=== PATIENT | male | born 1955 | race Caucasian/White ===

== ENCOUNTER 2020-09-05 09:01 | Outpatient (REF) | payer OTHER, SELFPAY ==
[2020-09-05 11:26] LABS: Estimated Average Glucose 140 mg/dL; Hemoglobin A1c % 6.5 %
[2020-09-05 11:59] LABS: Alanine Aminotransferase 28 U/L (0-40); Albumin Level 4.5 g/dL (3.5-5.0); Alkaline Phosphatase 55 U/L (39-117); Anion Gap 15 (12-20); Aspartate Amino Transferase 23 U/L (5-37); Bilirubin Total 1.2 mg/dL (0.0-1.0); Blood Urea Nitrogen 15 mg/dL (9-16); Calcium 9.2 mg/dL (8.4-10.2); Carbon Dioxide 27 mmol/L (22-29); Chloride 99 mmol/L (96-108); Cholesterol 166 mg/dL; Estimated Glomerular Filt Rate > 60; Glucose Fasting 114 mg/dL (60-99); HDL Cholesterol 32 mg/dL; LDL Cholesterol Calculated 105 mg/dl; Potassium 4.7 mmol/l (3.3-5.1); Sodium 136 mmol/L (135-145); Triglycerides 148 mg/dL
== END 2020-09-05 09:02 | disposition home or self-care (01) ==
LOC: HO.MANLR 09:01
PROVIDERS: PCP Internal Medicine; Visit Provider Internal Medicine
DX: E11.9 Type 2 diabetes mellitus without complications (principal)
CPT/HCPCS: 80053; 80061; 83036

== ENCOUNTER 2020-12-11 10:11 | Outpatient (REF) | payer MEDICARE, SELFPAY ==
[2020-12-11 11:30] LABS: Estimated Average Glucose 143 mg/dL; Hemoglobin A1c % 6.6 %
== END 2020-12-11 10:12 | disposition home or self-care (01) ==
LOC: HO.MANLR 10:11
PROVIDERS: PCP Internal Medicine; Visit Provider Internal Medicine
DX: E11.9 Type 2 diabetes mellitus without complications (principal)
CPT/HCPCS: 36415; 83036

== ENCOUNTER 2021-05-14 08:35 | Outpatient (REF) | payer MEDICARE, SELFPAY ==
[2021-05-14 11:13] LABS: Hematocrit 44.1 % (42-52); Hemoglobin 14.2 g/dl (14.0-18.0); Mean Corpuscular HGB Conc 32.2 g/dl (31.0-36.0); Mean Corpuscular Hemoglobin 29.2 pg (27.0-33.0); Mean Corpuscular Volume 90.7 fL (80-98); Mean Platelet Volume 9.4 fL (9.4-12.4); Platelet Count 361 X10*3/uL (160-400); Red Blood Count 4.86 X10*6/uL (4.60-5.80); Red Cell Distribution Width 13.4 % (11.0-16.0); White Blood Count 8.7 X10*3/uL (4.8-10.8)
[2021-05-14 11:21] LABS: Estimated Average Glucose 157 mg/dL; Hemoglobin A1c % 7.1 %
[2021-05-14 12:05] LABS: Alanine Aminotransferase 43 U/L (0-40); Albumin Level 4.6 g/dL (3.5-5.0); Alkaline Phosphatase 46 U/L (39-117); Anion Gap 15 (12-20); Aspartate Amino Transferase 40 U/L (5-37); Bilirubin Total 1.8 mg/dL (0.0-1.0); Blood Urea Nitrogen 15 mg/dL (9-16); Calcium 9.7 mg/dL (8.4-10.2); Carbon Dioxide 26 mmol/L (22-29); Chloride 103 mmol/L (96-108); Cholesterol 177 mg/dL; Estimated Glomerular Filt Rate > 60; Glucose Fasting 131 mg/dL (60-99); HDL Cholesterol 32 mg/dL; LDL Cholesterol Calculated 116 mg/dl; Potassium 5.4 mmol/L (3.3-5.1); Sodium 139 mmol/L (135-145); Total Protein 7.9 g/dL (6.5-8.0); Triglycerides 147 mg/dL
[2021-05-14 12:13] LABS: Creatinine Urine 108.88 mg/dL; Microalbum/Creatinine Ratio Ur 10.1 ug/mg cr
[2021-05-14 12:26] LABS: Prostate Specific Antigen 1.89 ng/mL (<0.05-4.0)
== END 2021-05-14 08:36 | disposition home or self-care (01) ==
LOC: HO.MANLDS 08:35
PROVIDERS: PCP Internal Medicine; Visit Provider Internal Medicine
DX: E11.9 Type 2 diabetes mellitus without complications (principal)
CPT/HCPCS: 36415; 80053; 80061; 82043; 83036; 84153; 85027

== ENCOUNTER 2021-09-03 09:45 | Outpatient (REF) | payer MEDICARE, SELFPAY ==
[2021-09-03 11:19] LABS: Estimated Average Glucose 160 mg/dL; Hemoglobin A1c % 7.2 %
[2021-09-03 11:20] LABS: Alanine Aminotransferase 36 U/L (0-40); Albumin Level 4.5 g/dL (3.5-5.0); Alkaline Phosphatase 45 U/L (39-117); Anion Gap 13 (12-20); Aspartate Amino Transferase 26 U/L (5-37); Bilirubin Total 1.3 mg/dL (0.0-1.0); Blood Urea Nitrogen 16 mg/dL (9-16); Carbon Dioxide 28 mmol/L (22-29); Chloride 102 mmol/L (96-108); Cholesterol 177 mg/dL; Estimated Glomerular Filt Rate > 60; Glucose Fasting 142 mg/dL (60-99); HDL Cholesterol 31 mg/dL; LDL Cholesterol Calculated 115 mg/dl; Potassium 5.2 mmol/L (3.3-5.1); Sodium 138 mmol/L (135-145); Total Protein 7.8 g/dL (6.5-8.0); Triglycerides 156 mg/dL
== END 2021-09-03 09:46 | disposition home or self-care (01) ==
LOC: HO.MANLDS 09:45
PROVIDERS: PCP Internal Medicine; Visit Provider Internal Medicine
DX: E11.9 Type 2 diabetes mellitus without complications (principal)
CPT/HCPCS: 36415; 80053; 80061; 83036

== ENCOUNTER 2021-12-07 09:01 | Outpatient (REF) | payer MEDICARE, SELFPAY ==
[2021-12-07 11:24] LABS: Estimated Average Glucose 137 mg/dL; Hemoglobin A1c % 6.4 %
== END 2021-12-07 09:02 | disposition home or self-care (01) ==
LOC: HO.MANLDS 09:01
PROVIDERS: PCP Internal Medicine; Visit Provider Internal Medicine
DX: E11.9 Type 2 diabetes mellitus without complications (principal); Z12.5 Encounter for screening for malignant neoplasm of prostate
CPT/HCPCS: 36415; 83036

== ENCOUNTER 2022-03-18 08:27 | Outpatient (REF) | payer MEDICARE, SELFPAY ==
[2022-03-18 11:29] LABS: Estimated Average Glucose 128 mg/dL; Hemoglobin A1c % 6.1 %
[2022-03-18 12:00] LABS: Alanine Aminotransferase 27 U/L (0-40); Albumin Level 4.6 g/dL (3.5-5.0); Alkaline Phosphatase 46 U/L (39-117); Anion Gap 14 (12-20); Aspartate Amino Transferase 22 U/L (5-37); Bilirubin Total 1.5 mg/dL (0.0-1.0); Blood Urea Nitrogen 19 mg/dL (9-16); Calcium 9.7 mg/dL (8.4-10.2); Carbon Dioxide 27 mmol/L (22-29); Chloride 105 mmol/L (96-108); Cholesterol 175 mg/dL; Estimated Glomerular Filt Rate > 60; Glucose Random 134 mg/dL (60-115); HDL Cholesterol 36 mg/dL; LDL Cholesterol Calculated 120 mg/dl; Sodium 140 mmol/L (135-145); Triglycerides 99 mg/dL
[2022-03-18 12:01] LABS: Potassium 6.1 mmol/L (3.3-5.1)
[2022-03-18 12:07] LABS: Prostate Specific Antigen 1.13 ng/mL (<0.05-4.0)
[2022-03-18 14:38] LABS: Creatinine Urine 111.42 mg/dL; Microalbum/Creatinine Ratio Ur 16.1 ug/mg cr
== END 2022-03-18 08:28 | disposition home or self-care (01) ==
LOC: HO.MANLDS 08:27
PROVIDERS: Visit Provider Internal Medicine
DX: Z12.5 Encounter for screening for malignant neoplasm of prostate (principal); E11.9 Type 2 diabetes mellitus without complications
CPT/HCPCS: 36415; 80053; 80061; 82043; 83036; 84153

== ENCOUNTER 2022-03-20 10:50 | Outpatient (REF) | payer MEDICARE, SELFPAY ==
[2022-03-20 14:31] LABS: Anion Gap 14 (12-20); Blood Urea Nitrogen 23 mg/dL (9-16); Calcium 9.9 mg/dL (8.4-10.2); Carbon Dioxide 27 mmol/L (22-29); Chloride 102 mmol/L (96-108); Estimated Glomerular Filt Rate > 60; Glucose Random 108 mg/dL (60-115); Potassium 5.3 mmol/L (3.3-5.1); Sodium 138 mmol/L (135-145)
== END 2022-03-20 10:51 | disposition home or self-care (01) ==
LOC: HO.MANLDS 10:50
PROVIDERS: Visit Provider Internal Medicine
DX: E78.5 Hyperlipidemia, unspecified (principal)
CPT/HCPCS: 36415; 80048

== ENCOUNTER 2022-08-28 09:10 | Outpatient (REF) | payer MEDICARE, SELFPAY ==
[2022-08-28 11:33] LABS: Estimated Average Glucose 143 mg/dL; Hemoglobin A1c % 6.6 %
[2022-08-28 11:51] LABS: Alanine Aminotransferase 37 U/L (0-40); Albumin Level 4.5 g/dL (3.5-5.0); Alkaline Phosphatase 62 U/L (39-117); Anion Gap 15 (12-20); Aspartate Amino Transferase 31 U/L (5-37); Bilirubin Total 1.9 mg/dL (0.0-1.0); Blood Urea Nitrogen 15 mg/dL (9-16); Calcium 9.5 mg/dL (8.4-10.2); Carbon Dioxide 27 mmol/L (22-29); Chloride 102 mmol/L (96-108); Cholesterol 162 mg/dL; Estimated Glomerular Filt Rate > 60; Glucose Random 129 mg/dL (60-115); HDL Cholesterol 33 mg/dL; LDL Cholesterol Calculated 105 mg/dl; Potassium 4.7 mmol/L (3.3-5.1); Sodium 139 mmol/L (135-145); Total Protein 7.7 g/dL (6.5-8.0); Triglycerides 124 mg/dL
== END 2022-08-28 09:11 | disposition home or self-care (01) ==
LOC: HO.MANLDS 09:10
PROVIDERS: Visit Provider Internal Medicine
DX: E11.9 Type 2 diabetes mellitus without complications (principal); Z12.5 Encounter for screening for malignant neoplasm of prostate
CPT/HCPCS: 36415; 80053; 80061; 83036

== ENCOUNTER 2022-12-13 09:18 | Outpatient (REF) | payer MEDICARE, SELFPAY ==
[2022-12-13 11:20] LABS: Estimated Average Glucose 140 mg/dL; Hemoglobin A1c % 6.5 %
== END 2022-12-13 09:19 | disposition home or self-care (01) ==
LOC: HO.MANLDS 09:18
PROVIDERS: Visit Provider Internal Medicine
DX: Z13.89 Encounter for screening for other disorder (principal)
CPT/HCPCS: 36415; 83036

== ENCOUNTER 2023-03-26 09:15 | Outpatient (REF) | payer MEDICARE, SELFPAY ==
[2023-03-26 11:28] LABS: Estimated Average Glucose 140 mg/dL; Hemoglobin A1c % 6.5 %
[2023-03-26 11:37] LABS: Alanine Aminotransferase 37 U/L (0-40); Albumin Level 4.3 g/dL (3.5-5.0); Alkaline Phosphatase 46 U/L (39-117); Anion Gap 8 (12-20); Aspartate Amino Transferase 32 U/L (5-37); Bilirubin Total 1.5 mg/dL (0.0-1.0); Blood Urea Nitrogen 19 mg/dL (9-16); Calcium 9.5 mg/dL (8.4-10.2); Carbon Dioxide 29 mmol/L (22-29); Chloride 104 mmol/L (96-108); Cholesterol 161 mg/dL; Estimated Glomerular Filt Rate > 60; Glucose Random 135 mg/dL (60-115); HDL Cholesterol 31 mg/dL; LDL Cholesterol Calculated 107 mg/dl; Potassium 4.8 mmol/L (3.3-5.1); Sodium 136 mmol/L (135-145); Total Protein 7.8 g/dL (6.5-8.0); Triglycerides 115 mg/dL
[2023-03-26 11:56] LABS: Prostate Specific Antigen 1.04 ng/mL (<0.05-4.0)
== END 2023-03-26 09:16 | disposition home or self-care (01) ==
LOC: HO.MANLDS 09:15
PROVIDERS: Visit Provider Internal Medicine
DX: E11.9 Type 2 diabetes mellitus without complications (principal); Z12.5 Encounter for screening for malignant neoplasm of prostate
CPT/HCPCS: 36415; 80053; 80061; 83036; 84153

== ENCOUNTER 2023-04-07 11:30 | Outpatient (REF) | payer MEDICARE, SELFPAY ==
[2023-04-07 19:01] LABS: Creatinine Urine 53.63 mg/dL; Microalbum/Creatinine Ratio Ur 44.7 ug/mg cr
== END 2023-04-07 11:31 | disposition home or self-care (01) ==
LOC: HO.MANLNP 11:30
PROVIDERS: Visit Provider Internal Medicine
DX: Z12.5 Encounter for screening for malignant neoplasm of prostate (principal); E11.9 Type 2 diabetes mellitus without complications
CPT/HCPCS: 82043

== ENCOUNTER 2023-07-14 08:46 | Outpatient (REF) | payer MEDICARE, SELFPAY ==
[2023-07-14 14:02] LABS: Alanine Aminotransferase 34 U/L (0-40); Albumin Level 4.4 g/dL (3.5-5.0); Alkaline Phosphatase 46 U/L (39-117); Anion Gap 17 (12-20); Aspartate Amino Transferase 29 U/L (5-37); Blood Urea Nitrogen 19 mg/dL (9-16); Calcium 9.7 mg/dL (8.4-10.2); Carbon Dioxide 23 mmol/L (22-29); Chloride 104 mmol/L (96-108); Cholesterol 165 mg/dL (<200); Estimated Glomerular Filt Rate > 60; Glucose Random 138 mg/dL (60-115); HDL Cholesterol 34 mg/dL (>40); LDL Cholesterol Calculated 107 mg/dL (<100); Potassium 4.6 mmol/L (3.3-5.1); Sodium 139 mmol/L (135-145); Total Protein 7.8 g/dL (6.5-8.0); Triglycerides 121 mg/dL (<150)
[2023-07-14 14:07] LABS: Estimated Average Glucose 146 mg/dL; Hemoglobin A1c % 6.7 % (<6.0)
== END 2023-07-14 08:47 | disposition home or self-care (01) ==
LOC: HO.MANLDS 08:46
PROVIDERS: Visit Provider Internal Medicine
DX: Z12.5 Encounter for screening for malignant neoplasm of prostate (principal); E11.9 Type 2 diabetes mellitus without complications
CPT/HCPCS: 36415; 80053; 80061; 83036

== ENCOUNTER 2023-07-25 09:58 | Outpatient (REF) | payer MEDICARE, SELFPAY | END 2023-07-25 09:59 | disposition home or self-care (01) | LOC: HO.MANLDS 09:58 | PROVIDERS: Visit Provider Internal Medicine | DX: Z13.89 Encounter for screening for other disorder (principal) ==

== ENCOUNTER 2024-01-13 09:00 | Outpatient (REF) | payer MEDICARE, SELFPAY ==
[2024-01-13 14:27] LABS: Estimated Average Glucose 146 mg/dL; Hemoglobin A1c % 6.7 % (<6.0)
[2024-01-13 14:34] LABS: Prostate Specific Antigen 1.12 ng/mL (<0.05-4.0)
[2024-01-13 15:34] LABS: Alanine Aminotransferase 38 U/L (0-40); Albumin Level 4.5 g/dL (3.5-5.0); Anion Gap 13 (12-20); Aspartate Amino Transferase 32 U/L (5-37); Bilirubin Total 1.5 mg/dL (0.0-1.0); Blood Urea Nitrogen 17 mg/dL (9-16); Calcium 9.8 mg/dL (8.4-10.2); Carbon Dioxide 27 mmol/L (22-29); Chloride 104 mmol/L (96-108); Cholesterol 168 mg/dL (<200); Estimated Glomerular Filt Rate > 60; Glucose Random 109 mg/dL (60-115); HDL Cholesterol 37 mg/dL (>40); LDL Cholesterol Calculated 107 mg/dL (<100); Potassium 5.2 mmol/L (3.3-5.1); Sodium 139 mmol/L (135-145); Total Protein 8.1 g/dL (6.5-8.0); Triglycerides 123 mg/dL (<150)
[2024-01-13 15:42] LABS: Alkaline Phosphatase 50 U/L (39-117)
== END 2024-01-13 09:01 | disposition home or self-care (01) ==
LOC: HO.MANLDS 09:00
PROVIDERS: Visit Provider Internal Medicine
DX: Z12.5 Encounter for screening for malignant neoplasm of prostate (principal); E11.40 Type 2 diabetes mellitus with diabetic neuropathy, unspecified
CPT/HCPCS: 36415; 80053; 80061; 83036; 84153

== ENCOUNTER 2024-05-17 08:59 | Outpatient (REF) | payer MEDICARE, SELFPAY ==
[2024-05-17 13:44] LABS: Estimated Average Glucose 146 mg/dL; Hemoglobin A1c % 6.7 % (<6.0)
== END 2024-05-17 09:00 | disposition home or self-care (01) ==
LOC: HO.MANLDS 08:59
PROVIDERS: Visit Provider Internal Medicine
DX: E11.40 Type 2 diabetes mellitus with diabetic neuropathy, unspecified (principal)
CPT/HCPCS: 36415; 83036

== ENCOUNTER 2024-07-26 08:42 | Outpatient (REF) | payer MEDICARE, SELFPAY ==
[2024-07-26 14:09] LABS: Estimated Average Glucose 157 mg/dL; Hemoglobin A1C 198.1769 umol/L; Hemoglobin A1c % 7.1 % (<6.0); Total Hemoglobin (HGBA1C) 3662.0372 umol/L
[2024-07-26 14:09] LABS: Alanine Aminotransferase 47 U/L (0-40); Albumin Level 4.6 g/dL (3.5-5.0); Alkaline Phosphatase 41 U/L (39-117); Anion Gap 14 (12-20); Aspartate Amino Transferase 51 U/L (5-37); Bilirubin Total 1.6 mg/dL (0.0-1.0); Blood Urea Nitrogen 22 mg/dL (9-16); Calcium 9.8 mg/dL (8.4-10.2); Carbon Dioxide 24 mmol/L (22-29); Chloride 102 mmol/L (96-108); Cholesterol 178 mg/dL (<200); Estimated Glomerular Filt Rate > 60; Glucose Random 154 mg/dL (60-115); HDL Cholesterol 37 mg/dL (>40); LDL Cholesterol Calculated 108 mg/dL (<100); Potassium 4.4 mmol/L (3.3-5.1); Sodium 136 mmol/L (135-145); Triglycerides 167 mg/dL (<150)
[2024-07-26 14:41] LABS: Prostate Specific Antigen 1.03 ng/mL (<0.05-4.0)
[2024-07-26 14:42] LABS: Creatinine Urine 61.66 mg/dL; Microalbum/Creatinine Ratio Ur 29.1 ug/mg cr (<30)
== END 2024-07-26 08:43 | disposition home or self-care (01) ==
LOC: HO.MANLDS 08:42
PROVIDERS: Visit Provider Internal Medicine
DX: E11.40 Type 2 diabetes mellitus with diabetic neuropathy, unspecified (principal); Z12.5 Encounter for screening for malignant neoplasm of prostate
CPT/HCPCS: 36415; 80053; 80061; 82043; 82570; 83036; 84153

== ENCOUNTER 2024-11-03 11:24 | Outpatient (REF) | payer MEDICARE, SELFPAY ==
--- OUTSIDE RECORDS SUMMARY | 2024-11-03 13:17 | XMS_ITS | Data Portability ---
Author Organization [facility] Address [address] [place] [address] Assessment Encounter Date Assessment Date Assessment LastModified by Organization Details LastModified Time 02/17/2024 02/17/2024 Patient presente d to office today for their Medicare Annual Wellness Visit. Education was provided on healthy nutrition, including a diet rich in fruits and vegetables, minimizing simple carbohydrates, salt, and saturated fats. Encouraged regular cardiovascular exercise such as walking at least 30 minutes daily, 5 times per week. Emphasized preventive health measures and educated pt on fall prevention and community-based lifestyle interventions to help reduce health risks and promote healthy living. [email or web address] Not available 02/16/2024 20:00:57 05/26/2024 05/26/2024 [id number] [place] [id number] (PROGRAM ENGAGEMENT DIRECTOR) MDM MODERATE MUST MEET 2 OUT OF 3 ELEMENTS: PROBLEMS, DATA OR RISK ELEMENT 1: PROBLEMS ADDRESSED 1 OR MORE CHRONIC ILLNESS WITH EXACERBATION OR 2 OR MORE STABLE CHRONIC ILLNESSES OR 1 UNDIAGNOSED NEW PROBLEM OR 1 ACUTE ILLNESS W/SYMPTOMS OR 1 ACUTE COMPLICATED INJURY ELEMENT 2: DATA MUST MEET 1 OF 3 CATEGORIES CATEGORY 1: REVIEW OF PRIOR EXTERNAL NOTES, REVIEW OF RESULTS, ORDERING OF EACH TEST, ASSESSMENT REQUIRING INDEPENDENT HISTORIAN OR CATEGORY 2: INDEPENDENT INTERPRETATION OF TESTS BY ANOTHER PHYSICIAN OR SPECIALIST OR CATEGORY 3: DISCUSSION OF MGT OR TEST INTERPRETATION W/EXTERNAL PHYSICIAN OR SPECIALIST ELEMENT 3: RISK RISK OF COMPLICATIONS AND/OR MORBIDITY OR MORTALITY OF PATIENT MANAGEMENT PROVIDER MUST THOROUGHLY DOCUMENT EACH ELEMENT THAT IS COVERED Not available 05/26/2024 14:13:06 08/02/2024 08/02/2024 [id number] [place] [id number] (PROGRAM ENGAGEMENT DIRECTOR) MDM MODERATE MUST MEET 2 OUT OF 3 ELEMENTS: PROBLEMS, DATA OR RISK ELEMENT 1: PROBLEMS ADDRESSED 1 OR MORE CHRONIC ILLNESS WITH EXACERBATION OR 2 OR MORE STABLE CHRONIC ILLNESSES OR 1 UNDIAGNOSED NEW PROBLEM OR 1 ACUTE ILLNESS W/SYMPTOMS OR 1 ACUTE COMPLICATED INJURY ELEMENT 2: DATA MUST MEET 1 OF 3 CATEGORIES CATEGORY 1: REVIEW OF PRIOR EXTERNAL NOTES, REVIEW OF RESULTS, ORDERING OF EACH TEST, ASSESSMENT REQUIRING INDEPENDENT HISTORIAN OR CATEGORY 2: INDEPENDENT INTERPRETATION OF TESTS BY ANOTHER PHYSICIAN OR SPECIALIST OR CATEGORY 3: DISCUSSION OF MGT OR TEST INTERPRETATION W/EXTERNAL PHYSICIAN OR SPECIALIST ELEMENT 3: RISK RISK OF COMPLICATIONS AND/OR MORBIDITY OR MORTALITY OF PATIENT MANAGEMENT PROVIDER MUST THOROUGHLY DOCUMENT EACH ELEMENT THAT IS COVERED Not available 08/02/2024 13:45:43 08/16/2024 08/16/2024 [id number] [place] [id number] (PROGRAM ENGAGEMENT DIRECTOR) : MDM LOW MUST MEET 2 OF 3 ELEMENTS: PROBLEMS, DATA OR RISK ELEMENT 1: PROBLEMS ADDRESSED (LOW): 2 OR MORE SELF-LIMITED OR MINOR PROBLEMS OR 1 STABLE CHRONIC ILLNESS OR 1 ACUTE UNCOMPLICATED ILLNESS OR INJURY ELEMENT 2: DATA TO BE REVISED AND ANALYZED (LOW) MUST MEET 1 OF 2 CATEGORIES: CATEGORY 1. REVIEW OF PRIOR EXTERNAL NOTES/RESULTS, ORDERING OF TEST(S) CATEGORY 2. ASSESSMENT REQUIRING INDEPENDENT HISTORIAN(S) INCLUDE WHO THE HISTORIAN IS AND RELATION TO PT AND WHY PT IS UNABLE TO GIVE COMPLETE HISTORY ELEMENT 3: RISK (LOW) RISK OF COMPLICATIONS AND/OR MORBIDITY OR MORTALITY OF PATIENT MANAGEMENT PROVIDER MUST THOROUGHLY DOCUMENT ALL OF THE ELEMENTS COVERED Not available 08/16/2024 13:49:32 Plan of Treatment Reminders Order Date Submit Date Provider Last Modified By Organization Details Last Modified Time Details Appointments FOLLOW UP 15 2024 02:45P M DR LIRA Not available Not available Not available Lab None recorded. Referral orthopedi c surgeon referral 2023 024 [facility] Laz Dolan, [facility] [place], [address], 08/23/2024 08:37:49 Procedures None recorded. Surgeries None recorded. Imaging MRI, shoulder, w/o contrast - Not Required Procedure codes: 65257Pxfn Reference #: [id number] PMResolut ion: Completed on 4 at 04:59 pm. Call ref #QUINTIN,[id number] 8PM. 2023 024 [email or web address], [address] [place] [address], [place], [address], 08/10/2024 08:36:36 Medication Orders meloxicam 15 mg tablet 2023 024 [id number], [address], [place], [phone], 05/26/2024 14:12:23 naproxen 500 mg tablet 2023 024 [id number], [address], [place], [phone], 05/26/2024 14:16:41 diclofena c sodium 75 mg tablet,de layed release 2023 [id number], [address], [place], [phone], 08/02/2024 14:06:10 Patient TargetsNo targets recorded. Patient Instructions Encounter Date Encounter Id Patient Instructions Last Modified By Organization Details Last Modified Time 02/17/2024 [id number] healthy upper back: exercises Not available 02/17/2024 15:13:49 Discussed and explained advance directives such as standard forms to the {{patient caregiv er patient and caregiver}}. Face to face discussion lasted for a duration of ___ minutes. [email or web address] Not available 02/16/2024 20:00:58 05/26/2024 [id number] sacroiliac pain: exercises Not available 05/26/2024 14:16:30 Reason for Referral Orthopedic Surgeon Referral for Rupture of rotator cuff of right shoulder Referring Physician: Mark Lira, Internal Medicine, Encounter Date: 08/16/2024 Results Created Date Observation Date Name Description Value Unit Range Abnormal Flag Note LastModifiedBy Organization Detail LastModifiedTime 08/12/20 24 08/10/2024 MRI, shoul anya, w/o contr ast No observ ation record ed. [email or web address] [facility] [address] [place] [address], [place], [address], 08/13/2024 09:02:50 Result Notes None recorded. Problems Name Problem SNOMED Code Status Onset Date Resolution Date Notes Provider Name and Address Organization Details Recorded Time Neuropath y due to diabetes mellitus 188176316 Active 2017 Not Available [facility] 0 14:34:24 Essential hypertens ion 21142373 Active 2020 Mark Lira DO [address] [place] [address], [address], [facility] 1 14:42:14 Generaliz ed rash 031646354 Active 2021 VIVIAN FERRO [address] [place] [address], [address], [facility] 2 11:39:28 Abdominal pain 21846023 Active 2021 VIVIAN FERRO [address] [place] [address], [address], [facility] 2 16:06:58 Right upper quadrant pain 184143446 Active 2021 Mark Lira DO [address] [place] [address], [address], [facility] 2 21:09:50 Cholecyst ectomy Active 2013 Mark Lira DO [address] [place] [address], [address], [facility] 4 12:17:05 Abdominal cutaneous nerve entrapmen t syndrome 445310807 Active 2021 Mark Lira DO [address] [place] [address], [address], [facility] 2 11:01:24 Inflammat ion of sacroilia c joint 56932296 Active 2022 Mark Lira DO [address] [place] [address], [address], [facility] 3 11:00:19 Plantar wart of left foot 985444715873 27330 Active 2022 Mark Lira DO [address] [place] [address], [address], [facility] 3 10:09:43 Bilateral sacroilii tis 212826974535 83933 Active 2022 Mark Lira, DO [address] [place] [address], [address], [facility] 3 10:04:07 Diverticu litis of sigmoid colon 209650186 Active 2023 Mark Lira, DO [address] [place] [address], [address], [facility] 4 10:05:59 Thoracic back pain 768323761 Active 2023 Mark Lira, DO [address] [place] [address], [address], [facility] 4 11:13:20 Rupture of rotator cuff of right shoulder 366823760317 06549 Active 2023 Mark Lira, DO [address] [place] [address], [address], [facility] 4 13:46:22 Displacem ent of cervical intervert ebral disc 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 Procedures Surgical History Date Name Laterality Status Provider Name and Address Organization Details Recorded Time 2 Colonoscopy completed Elyse Sullivan [facility] 08/12/2018 11:31:30 Imaging Results Imaging Date Name Status LastModified by Organiz ation Details LastModified Time 08/10/2024 MRI, shoulder, w/o contrast completed [email or web address] [facility] [address] [facility] [address], [place], [address], 08/13/2024 09:02:50 Procedure Notes None recorded. Medical Equipment None Reported. Allergies Allergen ID Allergen Name Allergen Category Reaction Reaction Severity Criticality Documentation Date Start Date Code Code System Note Provider Name and Address Organization Details Recorded Time 5964 lisinopri l medicatio n Not available Not available Not available 05/17/2022 21998 RxNorm hyper kalem ia Nanda Santos, DO [address] [place], [address], [facility] 2 10:59:50 8295 meloxicam medicatio n rash mild low 05/26/2024 66699 RxNorm JamieRomulo Lira, [address] [place], [address], [facility] 4 14:12:03 Medications Name Sig Start Date Stop Date Status Note LastModified by Organization Details LastModified Time cyclobenzap rine 10 mg tablet TAKE 1 TABLET BY MOUTH TWICE DAILY FOR 10 DAYS 02/16 completed Not Available Not Available Not Available ibuprofen 800 mg tablet Take 1 tablet 3 times a day by oral route for 15 days. 02/22 completed Not Available Not Available Not Available tizanidine 4 mg tablet 10/22 completed Not Available Not Available Not Available meloxicam 15 mg tablet TAKE 1 TABLET BY MOUTH EVERY DAY 05/26 completed rash Not Available Not Available Not Available acetaminoph en 300 mg-codeine 30 mg tablet 02/06 completed Not Available Not Available Not Available tramadol 50 mg tablet TAKE 1 TABLET BY MOUTH EVERY 6 HOURS FOR 7 DAYS 09/13 completed Not Available Not Available Not Available ketorolac 0.5 % eye drops INSTILL 1 DROP IN THE RIGHT EYE THREE TIMES DAILY FOR 3 WEEKS FOLLOWING SURGERY ON 10/23/2012/19 completed Not Available Not Available Not Available amitriptyli ne 25 mg tablet 10/22 completed Not Available Not Available Not Available metformin 1,000 mg tablet TAKE 1 TABLET BY MOUTH TWICE DAILY 2023 active Not Available Not Available Not Avai lable clotrimazol e-betametha sone 1 %-0.05 % topical cream APPLY TO THE AFFECTED AND SURROUNDI NG AREAS OF SKIN BY TOPICAL ROUTE 2 TIMES PER DAY IN THE MORNING AND EVENING FOR 2 WEEKS 09/13 completed Not Available Not Available Not Available glimepiride 4 mg tablet TAKE 1 TABLET BY MOUTH EVERY DAY 2023 active Not Available Not Available Not Avai lable gabapentin 300 mg capsule Take 1 capsule every day by oral route at bedtime. 02/17 completed Not Available Not Available Not Available diclofenac sodium 75 mg tablet,frandy yed release TAKE 1 TABLET BY MOUTH TWICE DAILY WITH MEALS active Not Available Not Available No t Available lisinopril 5 mg tablet TAKE 1 TABLET BY MOUTH EVERY DAY active Not Available Not Available No t Available zolpidem 10 mg tablet Take 1 tablet every day by oral route at bedtime for 10 days. 05/23 completed Not Available Not Available Not Available naproxen 500 mg tablet TAKE 1 TABLET BY MOUTH TWICE DAILY 2024 active Not Available Not Available Not Avai lable diazepam 5 mg tablet 06/18 completed Not Available Not Available Not Available amoxicillin 875 mg-vanassiu m clavulanate 125 mg tablet TAKE 1 TABLET BY MOUTH EVERY 12 HOURS FOR 10 DAYS 02/16 completed Not Available Not Available Not Available oxycodone 5 mg tablet Take 2 tablets 4 times a day by oral route as needed for 7 days. 10/22 completed Not Available Not Available Not Available Pneumovax-2 3 25 mcg/0.5 mL injection syringe 06/12 completed Not Available Not Available Not Available magnesium active Not Available Not Pamela ilable Not Available Januvia 100 mg tablet take 1 tablet by mouth once daily 05/25 completed Not Available Not Available Not Available Prevnar 13 (PF) 0.5 mL intramuscul ar syringe ADM 0.5ML IM UTD 12/19 completed Not Available Not Available Not Available B12 qd active Not Available Not Availa ble Not Available Shingrix (PF) 50 mcg/0.5 mL intramuscul ar suspension, kit 06/12 completed Not Available Not Available Not Available Fluzone High-Dose Quad (PF) 240 mcg/0.7 mL IM syringe ADM 0.7ML IM UTD 12/19 completed Not Available Not Available Not Available BinaxNOW COVID-19 Ag Self Test kit TEST DIRECTED TODAY 02/16 completed Not Available Not Available Not Available Vitals Date Recorded Body height Body mass index (BMI) Body weight Heart rate Respiratory rate Oxygen saturation Oxygen saturation in Arterial blood by Pulse oximetry Systolic blood pressure Diastolic blood pressure Provider Name and Address Organization Details Last Updated DateTime 4 177.8 cm 31.2 kg/m2 23174.3 4 g 68 /min 18 /min 98 % 98 % 148 mm[Hg] 80 mm[Hg] Mark Lira, DO [address] [place], [address], [facility] 4 14:25:09 Date Recorded Body height Body mass index (BMI) Body weight Heart rate Oxygen saturation Oxygen saturation in Arterial blood by Pulse oximetry Systolic blood pressure Diastolic blood pressure Provider Name and Address Organization Details Last Updated DateTime 4 177.8 cm 31.6 kg/m2 44297.3 2 g 76 /min 98 % 98 % 146 mm[Hg] 82 mm[Hg] To Echols [facility] 4 13:30:44 Date Recorded Body height Body mass index (BMI) Body weight Heart rate Oxygen saturation Oxygen saturation in Arterial blood by Pulse oximetry Systolic blood pressure Diastolic blood pressure Provider Name and Address Organization Details Last Updated DateTime 4 177.8 cm 31.6 kg/m2 64702.3 2 g 70 /min 97 % 97 % 156 mm[Hg] 80 mm[Hg] Zaina Fields [facility] 4 13:34:34 Social History Question Answer Notes LastModified by Organizat ion Details LastModified Time Tobacco Smoking Status Never Smoker Not Available [facility] 08/01/2020 03:36:23 What Was The Date Of Your Most Recent Tobacco Screening? 08/16/2024 [email or web address] Information not available 08/16/2024 Do You Or Have You Ever Used Any Other Forms Of Tobacco Or Nicotine? No Information not available 07/25/2023 Sex: Unknown Functional Status None recorded. Mental Status None recorded. Family History Nothing Reported. Medical History No medical history recorded. Immunizations Vaccine Type Date Status Note Provider Rodolfo e and Address Organization Details Recorded Time zoster recombinant 0 completed Mark Lira DO [address] [place] [address], [address], [facility] 05/23/2021 09:36:21 Tdap 2 [facility] [place] [facility] 10:50:35 Influenza, split virus, quadrivalent, preservative 0 [facility] [place] [facility]/01/2020 08:23:58 Pneumococcal conjugate PCV 13 0 [facility] [place] [facility]/2020 08:24:08 COVID-19, mRNA, LNP-S, PF, 30 mcg/0.3 mL dose 1 completed Elyse Sullivan [facility] 02/06/2021 10:05:38 COVID-19, mRNA, LNP-S, PF, 30 mcg/0.3 mL dose 1 completed Elyse Sullivan [facility] 02/06/2021 10:05:43 Past Encounters Encounter ID Performer Location Encounter Start Date Encounter Closed Date Diagnosis/Indication Diagnosis SNOMED-CT Code Diagnosis ICD10 Code Diagnosis Note [id number] Mark Lira DO [facility] [address] [facility] [address] 01/05/2018 13:25:00 01/05/2018 14:02:19 Type 2 diabetes mellitus 62467193 E11.9 actually doing ok has been under a lot of stress but is careful w eating a1c is 6.7 reviewed in detail discussed diet in detail activity limited due to back Degenerati on of lumbar intervertebral disc 99894510 M51.36 stable meaning same. in a lot of pain with radiculopa thy worse with inactivity taking just otc meds discussed need to keep active for sake of arthritis [id number] Mark Lira [facility] [address] [facility] [address] 05/04/2018 11:18:01 05/04/2018 14:28:16 Type 2 diabetes mellitus 24164980 E11.9 actually doing fair has been under a lot of stress is not careful w eating a1c is 7.2 reviewed in detail discussed diet in detail activity limited due to back Displaceme nt of cervical intervertebral disc without myelopathy 84984020 M50.20 Degenerati on of lumbar intervertebral disc 53181644 M51.36 stable meaning same. in a lot of pain with radiculopa thy worse with inactivity taking just otc meds discussed need to keep active for sake of arthritis Neuropathy due to diabetes mellitus 169514809 E11.40 still having a lot of probl with the feet and is still struggling at night [id number] Mark Lira [facility] [address] [facility] [address] 07/13/2018 15:07:22 07/13/2018 16:12:22 Degeneration of lumbar intervertebral disc 81272520 M51.36 not stable and in a lot of pain with radiculopa thy worse with inactivity states has been struggling even to walk taking just otc meds discussed need to keep active for sake of arthritis Type 2 sandee betes mellitus 70571130 E11.9 actually doing fair has been under a lot of stress is not careful w eating a1c is reviewed in detail discussed diet in detail activity limited due to back [id number] Mark Lira DO [facility] [address] [facility] [address] 08/12/2018 11:21:05 08/12/2018 15:53:14 Type 2 diabetes mellitus 27924642 E11.9 here for re eval of glucose a1c is 6.9 Hepatitis C screening 41 4152309 Z11.59 Degenerati on of lumbar intervertebral disc 26488299 M51.36 not stable and in a lot of pain with radiculopa thy worse with inactivity states has been struggling even to walk will need to have his back restudied worrisome about taking just otc meds discussed need to keep active for sake of arthritis [id number] Mark Lira DO [facility] [address] [facility] [address] 08/26/2018 10:04:53 08/26/2018 11:04:51 Degeneration of lumbar intervertebral disc 14374541 M51.36 not stable and in a lot of pain with radiculopa thy worse with inactivity states has been struggling even to walk will need to have his back eval by a neurosurge on at this point discussed need to keep active for sake of arthritis [id number] Mark Lira DO [facility] [address] [facility] [place] [address] 11/06/2018 09:50:34 11/06/2018 10:42:50 Type 2 diabetes mellitus 85549539 E11.9 here for re eval of glucose a1c is 6.4 and is actually doing good has gained some weight etc tho Neuropathy due to diabetes mellitus 358132745 E11.40 still having a lot of probl with the feet and is still struggling at night Degenerati on of lumbar intervertebral disc 48275782 M51.36 did very well overall since his corrective surgery and is walking and moving as much as he can going to mall to walk etc [id number] Mark Lira DO [facility] [address] [facility] [place] [address] 02/17/2019 10:17:51 02/17/2019 11:19:18 Type 2 diabetes mellitus 56135426 E11.9 here for re eval of glucose a1c is 6.5 and is actually doing good has gained some weight etc tho Hypertriglyceridemia 302 617221 E78.1 stable Synovial c yst of lumbar spine 754061612 M71.38 will need a surgical procedure to correct this await dr karin orellana [id number] Mark Lira DO [facility] [address] [facility] [place] [address] 06/18/2019 15:03:38 06/18/2019 15:47:09 Type 2 diabetes mellitus 74662604 E11.9 here for re eval of glucose a1c is 6.6 and is actually doing good has gained some weight etc tho Hypertriglyceridemia 302 435043 E78.1 stable LDL is 118 Neuropathy due to diabetes mellitus 383377027 E11.40 still having a lot of probl with the feet and is still struggling at night Pre-surger y evaluation 597591341 Z01.818 here for pre op for his lumbar back surgery by dr frazier Per the 2017 ACC risk assessment stratif he is a low risk at the present time for the proposed lumbar procedure. [id number] Mark Lira [facility] [address] [facility] [address] 10/22/2019 10:04:56 10/22/2019 10:48:54 Type 2 diabetes mellitus 12559493 E11.9 a1c is 6.7 and is actually doing good Weight stable Neuropathy due to diabetes mellitus 008969781 E11.40 Having increased cold feeling in feet at night Inflammati on of sacroiliac joint 82430253 M46.1 Ongoing since Aug - has been improving Scheduled for PT Insomnia 698091596 G47.0 1 Having issues sleeping after surgery Will try zolpidem for 1 week Essential hypertension 21040314 I10 elevated today Will start lisinipori l 5 mg [id number] Mark Lira [facility] [address] [facility] [address] 11/24/2019 14:52:13 11/24/2019 16:01:13 Active or passive immunization 055629848 Z23 Neuropathy due to diabetes mellitus 233154124 E11.40 Having increased cold feeling in feet at night Type 2 sandee betes mellitus 48333620 E11.9 a1c is 6.7 and is actually doing good Weight stable Degenerati on of lumbar intervertebral disc 27912348 M51.36 did very well overall since his corrective surgery and is walking and moving as much as he can going to mall to walk etc Essential hypertension 27322084 I10 elevated today cont lisinipori l 5 mg [id number] Mark Lira DO [facility] [address] [facility] [place] [address] 02/23/2020 10:41:13 02/23/2020 11:22:32 Type 2 diabetes mellitus 90858190 E11.9 a1c is 6.4 and was 6.7 and is actually doing good Weight stable ur microalb is neg Degenerati on of lumbar intervertebral disc 82225090 M51.36 did very well overall since his corrective surgery and is walking and moving as much as he can going to mall to walk etc Hypertriglyceridemia 302 256793 E78.1 stable LDL is 113 [id number] Mark Lira DO [facility] [address] [facility] [address] 06/12/2020 10:51:55 06/12/2020 12:10:42 Hypertriglyceridemia 927019560 E78.1 stable LDL is 113 will need to have this done next visit Type 2 sandee betes mellitus 64964001 E11.9 a1c is 6.6 and was 6.4 and was 6.7 and is actually doing good Weight stable ur microalb [place] [id number] Mark Lira [facility] [address] [facility] [address] 09/11/2020 08:47:34 09/11/2020 11:58:15 Type 2 diabetes mellitus 45667500 E11.9 a1c is 6.5 prior was 6.6 and was 6.4 and was 6.7 and is actually doing good Weight stable ur microalb is neg discussed trying to eat a little better as he is Neuropathy due to diabetes mellitus 922551781 E11.40 Having better feeling at night with feet tingling is gone and his back is feeling great Degenerati on of lumbar intervertebral disc 94016789 M51.36 did very well overall since his corrective surgery and is walking and moving as much as he can going to mall to walk etc Hypertriglyceridemia 302 170563 E78.1 stable LDL is 113 will need to have this done next visit [id number] Mark Lira DO [facility] [address] [facility] [address] 10/11/2020 08:13:53 10/11/2020 10:04:32 Type 2 diabetes mellitus 65653294 E11.9 a1c is 6.5 prior was 6.6 and was 6.4 and was 6.7 and is actually doing good Weight stable ur microalb is neg discussed trying to eat a little better as he is but overall is doing ok Pre-surger y evaluation [id number] Z01.818 here for pre op for his bilateral cataract surgery by Dr fitzgerald Per the 2017 ACC risk assessment stratifica tion he is a low risk at the present time for the proposed cataract procedure. Pt understand s he is to take his usual medication line up as always on the day of surgery .. Hypertriglyceridemia 302 393092 E78.1 stable LDL is 113 will need to have this done in the spring he is currently on no meds per his request and is actually doing well explained in detail the issue with cholest and diabetes Degenerati on of lumbar intervertebral disc 02947778 M51.36 did very well overall since his corrective surgery and is walking and moving as much as he can going to mall to walk etc he is able to ride his motorcycle on short trips without issue, etc he understand s the need to remain diligent in not being careless or taking chances with his back etc Neuropathy due to diabetes mellitus 135428172 E11.40 Having better feeling at night with feet tingling is gone and his back is feeling great. seem that he is keeping sugars down and when he does his feet feel better this is a good motivator for him [id number] Mark Lira, DO [facility] [address] [facility] [address],[place] [address] 12/19/2020 14:40:21 12/19/2020 16:19:54 Type 2 diabetes mellitus 76058020 E11.9 a1c is 6.6 and was 6 .5 prior was 6.6 and was 6.4 and was 6.7 and is actually doing good Weight stable ur microalb is neg discussed trying to eat a little better as he is but overall is doing ok Neuropathy due to diabetes mellitus 676216737 E11.40 Having better feeling at night with feet tingling is gone and his back is feeling great. seem that he is keeping sugars down and when he does his feet feel better this is a good motivator for him cataract surgery was excellent Degenerati on of lumbar intervertebral disc 85550569 M51.36 did very well overall since his corrective surgery and is walking and moving as much as he can going to mall to walk etc he is able to ride his motorcycle on short trips without issue, etc he understand s the need to remain diligent in not being careless or taking chances with his back etc [id number] Mark Lira [facility] [address] [facility],[place] [address] [address] 02/06/2021 14:25:06 02/06/2021 15:18:15 Neuropathy due to diabetes mellitus 688344139 E11.40 Having better feeling at night with feet tingling is gone and his back is feeling great. seem that he is keeping sugars down and when he does his feet feel better this is a good motivator for him cataract surgery was excellent Type 2 sandee betes mellitus 68535168 E11.9 a1c is still at like last tiome 6.6 and was 6 .5 prior was 6.6 and was 6.4 and was 6.7 and is so he is actually doing good Weight stable sown a couple lbs ur microalb is neg discussed trying to eat a little better as he is but overall is doing ok Essential hypertension 59576218 I10 stable today cont lisinipori l 5 mg [id number] Mark iLra [facility] [address] [facility] [facility] [place] [address] 05/23/2021 09:23:18 05/23/2021 10:36:26 Type 2 diabetes mellitus 49673502 E11.9 a1c is still at like last tiome 6.6 and was 6 .5 prior was 6.6 and was 6.4 and was 6.7 and is so he is actually doing good Weight stable sown a couple lbs ur microalb is neg discussed trying to eat a little better as he is but overall is doing ok Hypertriglyceridemia 302 352538 E78.1 stable LDL is 113 will need to have this done in the spring he is currently on no meds per his request and is actually doing well explained in detail the issue with cholest and diabetes Essential hypertension 03718205 I10 stable today cont lisinipori l 5 mg Inflammati on of sacroiliac joint 52041526 M46.1 Ongoing since Aug - has been improving and now not much of an issue unless he over does it Multiple a ctinic keratoses involving scalp 998648620 X32.XXXD [id number] Mark Lira [facility] [address] [facility],[place] [address] 09/12/2021 08:24:44 09/12/2021 11:00:01 Essential hypertension 51899674 I10 stable today cont lisinopril 5 mg Type 2 sandee betes mellitus 77964823 E11.9 a1c is still at like last time 6.6 and was 6.5 prior was 6.6 and was 6.4 and was 6.7 and is so he is actually doing good Weight stable sown a couple lbs ur microalb is neg discussed trying to eat a little better as he is but overall is doing ok Neuropathy due to diabetes mellitus 261144348 E11.40 Having better feeling at night with feet tingling is gone and his back is feeling great. seem that he is keeping sugars down and when he does his feet feel better this is a good motivator for him cataract surgery was excellent Hypertriglyceridemia 302 459547 E78.1 stable LDL is 113 will need to have this done in the spring he is currently on no meds per his request and is actually doing well explained in detail the issue with cholest and diabetes [id number] Mark Lira, [facility] [address] [facility],[place] [place] [address] 12/19/2021 10:48:26 12/21/2021 09:02:59 Neuropathy due to diabetes mellitus 314675435 E11.40 Having better feeling at night with feet tingling is gone and his back is feeling great. seem that he is keeping sugars down and when he does his feet feel better this is a good motivator for him cataract surgery was excellent Inflammati on of sacroiliac joint 14361038 M46.1 Ongoing since Aug - has been improving and now not much of an issue unless he over does it Essential hypertension 35471489 I10 stable today cont lisinopril 5 mg Hypertriglyceridemia 302 579104 E78.1 stable LDL is 113 will repeat next will need to have this done in the spring he is currently on no meds per his request and is actually doing well explained in detail the issue with cholest and diabetes Type 2 sandee betes mellitus 73046985 E11.9 a1c is excellent at 6.4 last time 6.6 and was 6.5 prior was 6.6 and was 6.4 and was 6.7 and is so he is actually doing good Weight stable sown a couple lbs ur microalb is neg discussed trying to eat a little better as he is but overall is doing ok [id number] Mark Lira DO [facility] [address] [facility] [address] [place] [address] [place] [facility] [place] [address] 05/17/2022 10:36:53 05/17/2022 11:09:32 Essential hypertension 34663473 I10 stable todaylisin opril has been stopped due to high K+ Type 2 sandee betes mellitus 47525958 E11.9 a1c is excellent at 6.1 was at 6.4 last time 6.6 and was 6.5 prior was 6.6 and was 6.4 and was 6.7 and is so he is actually doing good Weight stable sown a couple lbs ur microalb is neg discussed trying to eat a little better as he is but overall is doing ok Hypertriglyceridemia 302 435456 E78.1 stable LDL is 113 will repeat next will need to have this done in the spring he is currently on no meds per his request and is actually doing well explained in detail the issue with cholest and diabetes Advance care planning 71 8242923 Z71.89 up to date [id number] Mark Lira DO [facility] [address] [facility],[place] [address] [place] [place] [address] 09/13/2022 10:09:57 09/13/2022 11:30:38 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 given positive carnetts sign he will need inject Type 2 sandee betes mellitus 35421589 E11.9 a1c is excellent at 6.6 6.1 was at 6.4 last time 6.6 and was 6.5 prior was 6.6 and was 6.4 and was 6.7 and is so he is actually doing good Weight stable sown a couple lbs ur microalb is neg discussed trying to eat a little better as he is but overall is doing ok Essential hypertension 31074195 I10 stable todaylisin opril has been stopped due to high K+ [id number] Mark Lira DO [facility] [address] [facility] [address],[place] [address] 12/25/2022 08:52:04 12/25/2022 11:37:19 Essential hypertension 65294634 I10 stable todaylisin opril has been stopped due to high K+ Type 2 sandee betes mellitus 15679104 E11.9 a1c is excellent at 6.5 now 6.6 6.1 was at 6.4 last time 6.6 and was 6.5 prior was 6.6 and was 6.4 and was 6.7 and is so he is actually doing good Weight stable sown a couple lbs ur microalb is neg discussed trying to eat a little better as he is but overall is doing ok Neuropathy due to diabetes mellitus 397782402 E11.40 Having better feeling at night with feet tingling is gone and his back is feeling great. seem that he is keeping sugars down and when he does his feet feel better this is a good motivator for him cataract surgery was excellent Inflammati on of sacroiliac joint 77860893 M46.1 Ongoing since Aug - has been improving and now not much of an issue unless he over does it Abdominal cutaneous nerve entrapment syndrome 631682989 G58.8 given positive carnetts sign he will need inject [id number] Mark Lira, [facility] [address] [facility],[place] [address] 04/11/2023 09:36:33 04/11/2023 10:46:11 Type 2 diabetes mellitus 56889252 E11.9 a1c is excellent at 6.5 now 6.6 6.1 was at 6.4 last time 6.6 and was 6.5 prior was 6.6 and was 6.4 and was 6.7 and is so he is actually doing good Weight stable sown a couple lbs ur microalb is neg discussed trying to eat a little better as he is but overall is doing ok Neuropathy due to diabetes mellitus 385186782 E11.40 Having better feeling at night with feet tingling is gone and his back is feeling great. seem that he is keeping sugars down and when he does his feet feel better doing well this is a good motivator for him Degenerati on of lumbar intervertebral disc 90804425 M51.36 has started having pain again and he wishes to nip in bud will start PT etc he understand s the need to remain diligent in not being careless or taking chances with his back etc Plantar wa rt of left foot [id number] [id number] B07.0 [id number] Mark Lira [facility] [address] [facility],[place] [address] 07/25/2023 08:48:05 07/25/2023 12:01:20 Essential hypertension 63602719 I10 stable todaylisin opril has been stopped due to high K+ Type 2 sandee betes mellitus 24228258 E11.9 a1c is excellent at 6.5 now 6.6 6.1 was at 6.4 last time 6.6 and was 6.5 prior was 6.6 and was 6.4 and was 6.7 and is so he is actually doing good Weight stable sown a couple lbs ur microalb is neg discussed trying to eat a little better as he is but overall is doing ok Neuropathy due to diabetes mellitus 634841921 E11.40 Having better feeling at night with feet tingling is gone and his back is feeling great. seem that he is keeping sugars down and when he does his feet feel better doing well this is a good motivator for him Degenerati on of lumbar intervertebral disc 92138944 M51.36 has started having pain again and he wishes to nip in bud will start PT etc he understand s the need to remain diligent in not being careless or taking chances with his back etc Inflammati on of sacroiliac joint 85634785 M46.1 Ongoing since Aug - has been improving and now not much of an issue unless he over does it [id number] Mark Lira [facility] [address] [facility],[place] [address] 09/15/2023 11:23:42 09/15/2023 12:04:15 Neuropathy due to diabetes mellitus 635750537 E11.40 Having better feeling at night with feet tingling is gone and his back is feeling great. seem that he is keeping sugars down and when he does his feet feel better doing well this is a good motivator for himwe will have him see a field agronomist as renate biggs did not work out Essential hypertension 89921196 I10 stable todaylisin opril has been stopped due to high K+ Type 2 sandee betes mellitus 89884939 E11.9 a1c is excellent at 6.7 6.5 now 6.6 6.1 was at 6.4 last time 6.6 and was 6.5 prior was 6.6 and was 6.4 and was 6.7 and is so he is actually doing good Weight stable sown a couple lbs ur microalb is neg discussed trying to eat a little better as he is but overall is doing ok [id number] Mark Lira [facility] [address] [facility],[place] [address] 10/22/2023 11:36:20 10/22/2023 13:57:15 Type 2 diabetes mellitus 33226185 E11.40 a1c is excellent at 6.7 6.5 now 6.6 6.1 was at 6.4 last time 6.6 and was 6.5 prior was 6.6 and was 6.4 and was 6.7 and is so he is actually doing good Weight stable sown a couple lbs ur microalb is neg discussed trying to eat a little better as he is but overall is doing ok Inflammati on of sacroiliac joint 20786956 M46.1 Ongoing since Aug - has been improving and now not much of an issue unless he over does it Right uppe r quadrant pain 014593831 R10.[address] abdomen [id number] Mark Lira DO [facility] [address] [facility],[place] [employer] [place] [address] 02/17/2024 14:15:43 02/17/2024 15:52:11 Adult health examination 671077580 Z00.00 doing well pleased he is being more active Screening for cardiovascular system disease 990404853 Z13.6 done looks good Screening for malignant neoplasm of colon 723422639 Z12.11 pending Essential hypertension 06935055 I10 stable todaylisin opril has been stopped due to high K+ Hypertriglyceridemia 302 667402 E78.1 stable LDL is 113 will repeat next will need to have this done in the spring he is currently on no meds per his request and is actually doing well explained in detail the issue with cholest and diabetes Type 2 sandee betes mellitus 81585829 E11.40 a1c is excellent at 6.7 6.5 now 6.6 6.1 was at 6.4 last time 6.6 and was 6.5 prior was 6.6 and was 6.4 and was 6.7 and is so he is actually doing good Weight stable sown a couple lbs ur microalb is neg discussed trying to eat a little better as he is but overall is doing ok Depression screening 171 Z13.31 Thoracic back pain 23373 8004 M54.6 [id number] Mark Lira [facility] [address] [facility],[place] [address] 05/25/2024 08:48:14 07/12/2024 16:07:00 Neuropathy due to diabetes mellitus 783631442 E11.40 Having better feeling at night with feet tingling is gone and his back is feeling great. seem that he is keeping sugars down and when he does his feet feel better doing well this is a good motivator for himwe will have him see a field agronomist as renate biggs did not work out Essential hypertension 10257172 I10 stable todaylisin opril has been stopped due to high K+ Type 2 sandee betes mellitus 04516869 E11.40 a1c is excellent at 6.7 6.5 now 6.6 6.1 was at 6.4 last time 6.6 and was 6.5 prior was 6.6 and was 6.4 and was 6.7 and is so he is actually doing good Weight stable sown a couple lbs ur microalb is neg discussed trying to eat a little better as he is but overall is doing ok Depression screening 171 Z13.31 [id number] Mark Lira [facility] [address] [facility],[place] [address] 05/26/2024 11:14:25 05/26/2024 15:07:24 Type 2 diabetes mellitus 36888674 E11.40 a1c is excellent at 6.7 6.5 now 6.6 6.1 was at 6.4 last time 6.6 and was 6.5 prior was 6.6 and was 6.4 and was 6.7 and is so he is actually doing good Weight stable sown a couple lbs ur microalb is neg discussed trying to eat a little better as he is but overall is doing ok Neuropathy due to diabetes mellitus 444665101 E11.40 Having better feeling at night with feet tingling is gone and his back is feeling great. seem that he is keeping sugars down and when he does his feet feel better doing well this is a good motivator for himwe will have him see a field agronomist as renate biggs did not work out Essential hypertension 16915190 I10 stable todaylisin opril has been stopped due to high K+ Inflammati on of sacroiliac joint 02913377 M46.1 Ongoing since Aug - has been improving and now not much of an issue unless he over does it [id number] Mark Lira [facility] [address] [facility],[place] [address] 08/02/2024 13:26:29 08/02/2024 14:37:40 Depression screening 042958840 Z13.31 neg Rupture of rotator cuff of right shoulder 2054170230 5483012 M75.101 worried he tore the rotator and/or bicep tendon [id number] Mark Liar [facility] [address] [facility],[place] [address] 08/16/2024 13:29:08 08/16/2024 14:47:21 Rupture of rotator cuff of right shoulder 0101958963 5873277 M75.101 he tore the rotator and/or bicep tendon Health Concerns Section Related Observation LastModified by Organization Detai ls LastModified Time None Recorded Concern Status LastModified by Organization Details LastModified Time None Recorded Advance Directives Directive None Recorded Payers Encounter Date Sequence Insurance Name Policy Number Policy Fields Covered Member ID Fields Member ID Guarantor Name 02/17/2024 1 [facility] - MEDICARE PREFERRED (MEDICARE REPLACEMENT HMO) [employer] Ronnie Lopez [id number] Ronnie Lopez 05/25/2024 1 [facility] - MEDICARE PREFERRED (MEDICARE REPLACEMENT HMO) [employer] Ronnie Lopez [id number] Ronnie Lopez 05/26/2024 1 [facility] - MEDICARE PREFERRED (MEDICARE REPLACEMENT HMO) [employer] Ronnie Lopez [id number] Ronnie Lopez 08/02/2024 1 [facility] - MEDICARE PREFERRED (MEDICARE REPLACEMENT HMO) [employer] Ronnie Lopez [id number] Ronnie Lopez 08/16/2024 1 [employer] - MEDICARE PREFERRED (MEDICARE REPLACEMENT HMO) [employer] Ronnie Lopez [id number] Ronnie Lopez Notes Date Note Type Note Provider Name and Address Organization Details Recorded Time 4 text/htm l patient is evaluated via tele/video assessment per patient consent during current pandemic Mark Lira DO [address] [place], [address], [facility] 05/26/2024 14:17:10 4 text/htm l Care Management - DiabetesReported bypatient.Self Care:seeing eye doctor yearly for dilated eye exam; checking feet regularly; normal range of home blood sugars (in the low 100s); no side effects from medications Associated Symptoms:symptoms are usually well controlled; no fatigue; no dizziness; no excessive sweating; no headaches; no confusion; no increased thirst; no increased appetite; no increased urination; no blurred vision; no numbness of feet; no calluses on feetCare Management - HypertensionReported bypatient.Self Care:not under emotional stress Severity:symptoms are improving; does not interfere with daily activities Associated Symptoms:no dizziness; no lightheadedness; no chest pain; no shortness of breath; no palpitations; no edema; no calf muscle cramps; no blurred vision; no confusion; no headaches; no fatigue here for rechk and relates 4 days ago developed progressive pain to right shouldernow with certain movements he has a great deal of severe sharp pain to ant shoulder along the long head of bicep Mark Lira DO [address] [place], [address], [facility] 08/02/2024 14:01:22 4 text/htm l here to review the MRI resultshas very significant rotator cuff tears and tendonitis as well as bicpe injury and subscapularis injury Mark Lira DO [address] [place], [address], [facility] 08/16/2024 13:52:44
[2024-11-03 13:30] LABS: Estimated Average Glucose 169 mg/dL; Hemoglobin A1C 227.1779 umol/L; Hemoglobin A1c % 7.5 % (<6.0); Total Hemoglobin (HGBA1C) 3871.0883 umol/L
== END 2024-11-03 11:25 | disposition home or self-care (01) ==
LOC: HO.MANLDS 11:24
PROVIDERS: Visit Provider Internal Medicine
DX: E11.40 Type 2 diabetes mellitus with diabetic neuropathy, unspecified (principal)
CPT/HCPCS: 36415; 83036

== ENCOUNTER 2025-02-09 08:47 | Outpatient (REF) | payer MEDICARE, SELFPAY ==
--- OUTSIDE RECORDS SUMMARY | 2025-02-09 09:08 | XMS_ITS ---
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 Generated for Patience reid/Víctor/eTransmitting on:?02/09/2025 09:07 AM EDT
--- OUTSIDE RECORDS SUMMARY | 2025-02-09 09:08 | XMS_ITS | Data Portability ---
Author Organization [facility] Address [address] [place] [address] Assessment Encounter Date Assessment Date Assessment LastModified by Organization Details LastModified Time 05/26/2024 05/26/2024 [address] [place] [address] (DATABASE SUPPORT) [facility] MODERATE MUST MEET 2 OUT OF 3 [...] COVERED Not available 05/26/2024 14:13:06 08/02/2024 08/02/2024 [id number] [place] [id number] (DATABASE SUPPORT) [facility] MODERATE MUST MEET 2 OUT OF 3 [...] COVERED Not available 08/02/2024 13:45:43 08/16/2024 08/16/2024 [address] [place] [address] (DATABASE SUPPORT) : MDM LOW MUST MEET 2 OF [...] THE ELEMENTS COVERED Not available 08/16/2024 13:49:32 11/09/2024 11/09/2024 [address] [place] [address] (DATABASE SUPPORT) MDM MODERATE MUST MEET 2 OUT OF [...] EACH ELEMENT THAT IS COVERED Not available 11/09/2024 15:20:39 Plan of Treatment Reminders Order Date Submit Date Provider Last Modified By Organization Details Last Modified Time Details Appointments [facility]NUAL [facility]LL[facility] 2024 11:45A M DR LIRA Not available Not available Not available Lab None recorded. Referral orthopedi c surgeon referral 2023 024 jhonny Dolan MD, [address], [place], [address], 08/23/2024 08:37:49 Procedures None recorded. Surgeries None recorded. Imaging MRI, shoulder, w/o contrast - Not Required Procedure codes: 86215Auny Reference #: [id number] PMResolut ion: Completed on at 04:59 pm. Call ref #[id number] 8PM. 2023 024 [email or web address] [facility], [address], [place], [address], 08/10/2024 08:36:36 Medication Orders Ozempic 0.25 mg or 0.5 mg (2 mg/1.5 mL) subcutane ous pen injector 2024 025 [id number], [address], [place], [id number], 11/09/2024 15:24:22 diclofena c sodium 75 mg tablet,de layed release 2023 024 [id number], [address], [place], [id number], 11/09/2024 15:17:40 naproxen 500 mg tablet 2023 024 [id number], [address], [place], [id number], 05/26/2024 14:16:41 Patient TargetsNo targets recorded. Patient Instructions Encounter Date Encounter Id Patient Instructions Last Modified By Organization Details Last Modified Time 05/26/2024 [id number] sacroiliac pain: exercises Not available 05/26/2024 14:16:30 [...] observ ation record ed. [email or web address] [facility] [address], [place], [address], 08/13/2024 09:02:50 Result Notes None recorded. Problems Name Problem SNOMED Code Status Onset Date Resolution Date Notes Provider Name and Address Organization Details Recorded Time Neuropath y due to diabetes mellitus 121412555 Active 2017 Not Available [facility] 0 14:34:24 Essential hypertens ion 32270726 Active 2020 Mark Lira, [address] [place] [address], [phone], [facility] 1 14:42:14 Generaliz ed rash 998005321 Active 2021 VIVIAN FERRO [address] [place] [address], [phone], [facility] 2 11:39:28 Abdominal pain 77335825 Active 2021 VIVIAN FERRO [address] [place] [address], [address], [facility] 2 16:06:58 Right upper quadrant pain 488231250 Active 2021 Mark Lira DO [address] [place] [address], [address], [facility] 2 21:09:50 Cholecyst ectomy Active 2013 Mark Lira DO [address] [place] [address], [address], [facility] 4 12:17:05 Abdominal cutaneous nerve entrapmen t syndrome 820543677 Active 2021 Mark Lira DO [address] [place] [address], [address], [facility] 2 11:01:24 Inflammat ion of sacroilia c joint 89507271 Active 2022 Mark Lira DO [address] [place] [address], [address], [facility] 3 11:00:19 Plantar wart of left foot 942075575105 Active 2022 Mark AyalaRomulo Lira, DO [address] [place], [address], [facility] 3 10:09:43 Bilateral sacroilii tis 688449935883 96967 Active 2022 Mark Vee Santos, DO [address] [place] [address], [address], [facility] 3 10:04:07 Diverticu litis of sigmoid colon 829383706 Active 2023 Nanda Lira, DO [address] [place] [address], [address], [facility] 4 10:05:59 Thoracic back pain 651993067 Active 2023 JamieRomulo Santos, DO [address] [place] [address], [address], [facility] 4 11:13:20 Rupture of rotator cuff of right shoulder 173215816460 Active 2023 Mark Vee Santos, DO [address] [place] [address], [address], [facility] 4 13:46:22 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 Procedures Surgical History Date Name Laterality Status Provider Name and Address Organization Details Recorded Time 2 Colonoscopy completed Elyse Sullivan [facility] 08/12/2018 11:31:30 Imaging Results Imaging Date Name Status LastModified by Organiz ation Details LastModified Time 08/10/2024 MRI, shoulder, w/o contrast completed [email or web address] [facility] [address] [facility] [address], [place], [address], 08/13/2024 09:02:50 Procedure Notes None recorded. Medical Equipment None Reported. Allergies Allergen ID Allergen Name Allergen Category Reaction Reaction Severity Criticality Documentation Date Start Date Code Code System Note Provider Name and Address Organization Details Recorded Time 5964 lisinopri l medicatio n Not available Not available Not available 05/17/2022 43762 RxNorm hyper kalem ia Mark Lira, DO [address] [place], [address], [facility] 2 10:59:50 8295 meloxicam medicatio n rash mild low 05/26/2024 24448 RxNorm Mark Lira, [address] [place], [address], [facility] 4 14:12:03 Medications Name [...] TAKE 1 TABLET BY MOUTH TWICE DAILY active Not Available Not Available No t Available clotrimazol e-betametha sone 1 %-0.05 % topical cream APPLY TO THE AFFECTED AND SURROUNDI NG AREAS OF SKIN BY TOPICAL ROUTE 2 TIMES PER DAY IN THE MORNING AND EVENING FOR 2 WEEKS 09/13 completed Not Available Not Available Not Available glimepiride 4 mg tablet TAKE 1 TABLET BY MOUTH EVERY DAY 02/09 completed Not Available Not Available Not Available gabapentin 300 mg capsule Take 1 capsule every day by oral route at bedtime. 02/17 completed Not Available Not Available Not Available diclofenac sodium 75 mg tablet,frandy yed release TAKE 1 TABLET BY MOUTH TWICE DAILY WITH MEALS 11/09 completed Not Available Not Available Not Available lisinopril 5 mg tablet TAKE 1 TABLET BY MOUTH EVERY DAY active Not Available Not Available No t Available zolpidem 10 mg tablet Take 1 tablet every day by oral route at bedtime for 10 days. 05/23 completed Not Available Not Available Not Available naproxen 500 mg tablet TAKE 1 TABLET BY MOUTH TWICE DAILY active Not Available Not Available No t Available diazepam 5 mg tablet 06/18 completed Not Available Not Available Not Available amoxicillin 875 mg-potassiu m clavulanate 125 mg tablet TAKE 1 [...] completed Not Available Not Available Not Available Ozempic 0.25 mg or 0.5 mg (2 mg/1.5 mL) subcutaneou s pen injector Inject 0.25 mg every week by subcutane ous route for 30 days. 2024 active Not Available Not Available Not Avai lable Fluzone High-Dose Quad (PF) 240 mcg/0.7 mL [...] Updated DateTime 4 177.8 cm 31.6 kg/m2 82591.3 2 g 76 /min 98 % 98 % 146 mm[Hg] 82 mm[Hg] To Echols [facility] 4 13:30:44 Date Recorded Body height Body mass index (BMI) Body weight Heart rate Oxygen saturation Oxygen saturation in Arterial blood by Pulse oximetry Systolic blood pressure Diastolic blood pressure Provider Name and Address Organization Details Last Updated DateTime 4 177.8 cm 31.6 kg/m2 29329.3 2 g 70 /min 97 % 97 % 156 mm[Hg] 80 mm[Hg] Zaina Fields [facility] 4 13:34:34 Date Recorded Body height Body mass index (BMI) Body weight Heart rate Oxygen saturation Oxygen saturation in Arterial blood by Pulse oximetry Systolic blood pressure Diastolic blood pressure Provider Name and Address Organization Details Last Updated DateTime 5 177.8 cm 32 kg/m2 199901. 1 g 84 /min 95 % 95 % 140 mm[Hg] 80 mm[Hg] To Echols [place] [facility] 5 14:50:44 Social History Question Answer Notes LastModified by Organizat ion Details LastModified Time Tobacco Smoking Status Never Smoker Not Available [facility] 08/01/2020 03:36:23 What Was The Date Of Your Most Recent Tobacco Screening? 11/09/2024 [email or web address] Information not available 11/09/2024 Sex: Unknown Functional Status Question Answer Note LastModified by Organization D etails LastModified Time Do you or have you ever used any other forms of tobacco or nicotine? No [email or web address] Information not available 07/25/2023 Mental Status None recorded. Family History Nothing Reported. Medical History No medical history recorded. Immunizations Vaccine Type Date Status Note Provider Nam e and Address Organization Details Recorded Time zoster recombinant 0 completed Mark Lira DO [address] [place], [address], [facility] 05/23/2021 09:36:21 Tdap 2 completed Elizabeth tellez [facility] 05/17/2022 10:50:35 Influenza, split virus, quadrivalent, preservative 0 completed Elyse tellez [facility] 09/01/2020 08:23:58 Pneumococcal conjugate PCV 13 0 janine tellez [facility] 09/01/2020 08:24:08 COVID-19, mRNA, LNP-S, PF, 30 mcg/0.3 mL dose 1 janine tellez [facility] 02/06/2021 10:05:38 COVID-19, mRNA, LNP-S, PF, 30 mcg/0.3 mL dose 1 janine tellez [facility] 02/06/2021 10:05:43 Past Encounters Encounter ID Performer Location Encounter Start Date Encounter Closed Date Diagnosis/Indication Diagnosis SNOMED-CT Code Diagnosis ICD10 Code Diagnosis Note [id number] Mark Lira DO [facility] [address] [facility] [place],[place] [address] 01/05/2018 13:25:00 01/05/2018 14:02:19 Type 2 diabetes mellitus 54067079 E11.9 actually doing ok has been under a lot of stress but is careful w eating a1c is 6.7 reviewed in detail discussed diet in detail activity limited due to back Degenerati on of lumbar intervertebral disc 61572632 M51.36 stable meaning same. in a lot of pain with radiculopa thy worse with inactivity taking just otc meds discussed need to keep active for sake of arthritis [id number] Mark Lira DO [facility] [address] [facility] [address] [address] 05/04/2018 11:18:01 05/04/2018 14:28:16 Type 2 diabetes mellitus 36588224 E11.9 actually doing fair has been under a lot of stress is not careful w eating a1c is 7.2 reviewed in detail discussed diet in detail activity limited due to back Displaceme nt of cervical intervertebral disc without myelopathy 70575298 M50.20 Degenerati on of lumbar intervertebral disc 72333168 M51.36 stable meaning same. in a lot of pain with radiculopa thy worse with inactivity taking just otc meds discussed need to keep active for sake of arthritis Neuropathy due to diabetes mellitus 782941408 E11.40 still having a lot of probl with the feet and is still struggling at night [id number] Mark Lira DO [facility] [address] [facility] [address] [address] 07/13/2018 15:07:22 07/13/2018 16:12:22 Degeneration of lumbar intervertebral disc 62687247 M51.36 not stable and in a lot of pain with radiculopa thy worse with inactivity states has been struggling even to walk taking just otc meds discussed need to keep active for sake of arthritis Type 2 sandee betes mellitus 34987765 E11.9 actually doing fair has been under a lot of stress is not careful w eating a1c is reviewed in detail discussed diet in detail activity limited due to back [id number] Mark Lira DO [facility] [address] [facility] [address] 08/12/2018 11:21:05 08/12/2018 15:53:14 Type 2 diabetes mellitus 94025678 E11.9 here for re eval of glucose a1c is 6.9 Hepatitis C screening 41 3935324 Z11.59 Degenerati on of lumbar intervertebral disc 93315547 M51.36 not stable and in a lot of pain with radiculopa thy worse with inactivity states has been struggling even to walk will need to have his back restudied worrisome about taking just otc meds discussed need to keep active for sake of arthritis [id number] Mark Lira DO [facility] [address] [facility] [address] [address] 08/26/2018 10:04:53 08/26/2018 11:04:51 Degeneration of lumbar intervertebral disc 10798605 M51.36 not stable and in a lot of pain with radiculopa thy worse with inactivity states has been struggling even to walk will need to have his back eval by a neurosurge on at this point discussed need to keep active for sake of arthritis [id number] Mark Lira DO [facility] [address] [facility] [address] 11/06/2018 09:50:34 11/06/2018 10:42:50 Type 2 diabetes mellitus 38976983 E11.9 here for re eval of glucose a1c is 6.4 and is actually doing good has gained some weight etc tho Neuropathy due to diabetes mellitus 487586127 E11.40 still having a lot of probl with the feet and is still struggling at night Degenerati on of lumbar intervertebral disc 28658138 M51.36 did very well overall since his corrective surgery and is walking and moving as much as he can going to mall to walk etc [id number] Mark Lira DO [facility] [address] [facility] [address] 02/17/2019 10:17:51 02/17/2019 11:19:18 Type 2 diabetes mellitus 59573526 E11.9 here for re eval of glucose a1c is 6.5 and is actually doing good has gained some weight etc tho Hypertriglyceridemia 302 854558 E78.1 stable Synovial c yst of lumbar spine 355237946 M71.38 will need a surgical procedure to correct this await dr karin orellana [id number] Mark Lira DO [facility] [address] [facility] [address] 06/18/2019 15:03:38 06/18/2019 15:47:09 Type 2 diabetes mellitus 93728604 E11.9 here for re eval of glucose a1c is 6.6 and is actually doing good has gained some weight etc tho Hypertriglyceridemia 302 958281 E78.1 stable LDL is 118 Neuropathy due to diabetes mellitus 606839271 E11.40 still having a lot of probl with the feet and is still struggling at night Pre-surger y evaluation 109735590 Z01.818 here for pre op for his lumbar back surgery by dr frazier Per the 2017 ACC risk assessment stratif he is a low risk at the present time for the proposed lumbar procedure. [id number] Mark Lira [facility] [address] [facility] [address] 10/22/2019 10:04:56 10/22/2019 10:48:54 Type 2 diabetes mellitus 39571846 E11.9 a1c is 6.7 and is actually doing good Weight stable Neuropathy due to diabetes mellitus 649631510 E11.40 Having increased cold feeling in feet at night Inflammati on of sacroiliac joint 95638227 M46.1 Ongoing since Aug - has been improving Scheduled for PT Insomnia 437901179 G47.0 1 Having issues sleeping after surgery Will try zolpidem for 1 week Essential hypertension 74868884 I10 elevated today Will start lisinipori l 5 mg [id number] Mark Lira [facility] [address] [facility] [address] [address] 11/24/2019 14:52:13 11/24/2019 16:01:13 Active or passive immunization 276164517 Z23 Neuropathy due to diabetes mellitus 362210839 E11.40 Having increased cold feeling in feet at night Type 2 sandee betes mellitus 47826346 E11.9 a1c is 6.7 and is actually doing good Weight stable Degenerati on of lumbar intervertebral disc 97522233 M51.36 did very well overall since his corrective surgery and is walking and moving as much as he can going to mall to walk etc Essential hypertension 37540984 I10 elevated today cont lisinipori l 5 mg [id number] Mark Lira [facility] [address] [facility] [address] [address] 02/23/2020 10:41:13 02/23/2020 11:22:32 Type 2 diabetes mellitus 19313295 E11.9 a1c is 6.4 and was 6.7 and is actually doing good Weight stable ur microalb is neg Degenerati on of lumbar intervertebral disc 21780911 M51.36 did very well overall since his corrective surgery and is walking and moving as much as he can going to mall to walk etc Hypertriglyceridemia 302 748038 E78.1 stable LDL is 113 [id number] Mark Lira DO [facility] [address] [facility] [place] [address] 06/12/2020 10:51:55 06/12/2020 12:10:42 Hypertriglyceridemia 655810139 E78.1 stable LDL is 113 will need to have this done next visit Type 2 sandee betes mellitus 31551476 E11.9 a1c is 6.6 and was 6.4 and was 6.7 and is actually doing good Weight stable ur microalb is neg [id number] Mark Lira [facility] [address] [facility] [address] 09/11/2020 08:47:34 09/11/2020 11:58:15 Type 2 diabetes mellitus 95941683 E11.9 a1c is 6.5 prior was 6.6 and was 6.4 and was 6.7 and is actually doing good Weight stable ur microalb is neg discussed trying to eat a little better as he is Neuropathy due to diabetes mellitus 224457115 E11.40 Having better feeling at night with feet tingling is gone and his back is feeling great Degenerati on of lumbar intervertebral disc 57473408 M51.36 did very well overall since his corrective surgery and is walking and moving as much as he can going to mall to walk etc Hypertriglyceridemia 302 152928 E78.1 stable LDL is 113 will need to have this done next visit [id number] Mark Lira DO [facility] [address] [facility] [address] 10/11/2020 08:13:53 10/11/2020 10:04:32 Type 2 diabetes mellitus 83967134 E11.9 a1c is 6.5 prior was 6.6 and was 6.4 and was 6.7 and is actually doing good Weight stable ur microalb is neg discussed trying to eat a little better as he is but overall is doing ok Pre-surger y evaluation 288447329 Z01.818 here for pre op for his bilateral cataract surgery by Dr fitzgerald Per the 2017 ACC risk assessment stratifica tion he is a low risk at the present time for the proposed cataract procedure. Pt understand s he is to take his usual medication line up as always on the day of surgery .. Hypertriglyceridemia 302 223697 E78.1 stable LDL is 113 will need to have this done in the spring he is currently on no meds per his request and is actually doing well explained in detail the issue with cholest and diabetes Degenerati on of lumbar intervertebral disc 24227493 M51.36 did very well overall since his corrective surgery and is walking and moving as much as he can going to mall to walk etc he is able to ride his motorcycle on short trips without issue, etc he understand s the need to remain diligent in not being careless or taking chances with his back etc Neuropathy due to diabetes mellitus 189245675 E11.40 Having better feeling at night with feet tingling is gone and his back is feeling great. seem that he is keeping sugars down and when he does his feet feel better this is a good motivator for him [id number] Mark Lira, [facility] [address] [facility] [address] 12/19/2020 14:40:21 12/19/2020 16:19:54 Type 2 diabetes mellitus 68419440 E11.9 a1c is 6.6 and was 6 .5 prior was 6.6 and was 6.4 and was 6.7 and is actually doing good Weight stable ur microalb is neg discussed trying to eat a little better as he is but overall is doing ok Neuropathy due to diabetes mellitus 847598581 E11.40 Having better feeling at night with feet tingling is gone and his back is feeling great. seem that he is keeping sugars down and when he does his feet feel better this is a good motivator for him cataract surgery was excellent Degenerati on of lumbar intervertebral disc 04198189 M51.36 did very well overall since his corrective surgery and is walking and moving as much as he can going to mall to walk etc he is able to ride his motorcycle on short trips without issue, etc he understand s the need to remain diligent in not being careless or taking chances with his back etc [id number] Mark Lira DO [facility] [address] [facility] [address] 02/06/2021 14:25:06 02/06/2021 15:18:15 Neuropathy due to diabetes mellitus 836770404 E11.40 Having better feeling at night with feet tingling is gone and his back is feeling great. seem that he is keeping sugars down and when he does his feet feel better this is a good motivator for him cataract surgery was excellent Type 2 sandee betes mellitus 99997131 E11.9 a1c is still at like last tiome 6.6 and was 6 .5 prior was 6.6 and was 6.4 and was 6.7 and is so he is actually doing good Weight stable sown a couple lbs ur microalb is neg discussed trying to eat a little better as he is but overall is doing ok Essential hypertension 90448786 I10 stable today cont lisinipori l 5 mg [id number] Mark Lira DO [facility] [address] [facility] [address] 05/23/2021 09:23:18 05/23/2021 10:36:26 Type 2 diabetes mellitus 14448098 E11.9 a1c is still at like last tiome 6.6 and was 6 .5 prior was 6.6 and was 6.4 and was 6.7 and is so he is actually doing good Weight stable sown a couple lbs ur microalb is neg discussed trying to eat a little better as he is but overall is doing ok Hypertriglyceridemia 302 754897 E78.1 stable LDL is 113 will need to have this done in the spring he is currently on no meds per his request and is actually doing well explained in detail the issue with cholest and diabetes Essential hypertension 68182688 I10 stable today cont lisinipori l 5 mg Inflammati on of sacroiliac joint 19053903 M46.1 Ongoing since Aug - has been improving and now not much of an issue unless he over does it Multiple a ctinic keratoses involving scalp 825226403 X32.XXXD [id number] Mark Lira [facility] [address] [facility] [place] [address] 09/12/2021 08:24:44 09/12/2021 11:00:01 Essential hypertension 44405810 I10 stable today cont lisinopril 5 mg Type 2 sandee betes mellitus 21013300 E11.9 a1c is still at like last time 6.6 and was 6.5 prior was 6.6 and was 6.4 and was 6.7 and is so he is actually doing good Weight stable sown a couple lbs ur microalb is neg discussed trying to eat a little better as he is but overall is doing ok Neuropathy due to diabetes mellitus 427572205 E11.40 Having better feeling at night with feet tingling is gone and his back is feeling great. seem that he is keeping sugars down and when he does his feet feel better this is a good motivator for him cataract surgery was excellent Hypertriglyceridemia 302 392939 E78.1 stable LDL is 113 will need to have this done in the spring he is currently on no meds per his request and is actually doing well explained in detail the issue with cholest and diabetes [id number] Mark Lira [facility] Internal Medicine [address] [facility] [place], [place] [address] 12/19/2021 10:48:26 12/21/2021 09:02:59 Neuropathy due to diabetes mellitus 402916551 E11.40 Having better feeling at night with feet tingling is gone and his back is feeling great. seem that he is keeping sugars down and when he does his feet feel better this is a good motivator for him cataract surgery was excellent Inflammati on of sacroiliac joint 20882617 M46.1 Ongoing since Aug - has been improving and now not much of an issue unless he over does it Essential hypertension 87086465 I10 stable today cont lisinopril 5 mg Hypertriglyceridemia 302 605071 E78.1 stable LDL is 113 will repeat next will need to have this done in the spring he is currently on no meds per his request and is actually doing well explained in detail the issue with cholest and diabetes Type 2 sandee betes mellitus 68600634 E11.9 a1c is excellent at 6.4 last time 6.6 and was 6.5 prior was 6.6 and was 6.4 and was 6.7 and is so he is actually doing good Weight stable sown a couple lbs ur microalb is neg discussed trying to eat a little better as he is but overall is doing ok [id number] Mark Lira DO [facility] Internal Medicine [address] [facility] [place] [address] 05/17/2022 10:36:53 05/17/2022 11:09:32 Essential hypertension 52571988 I10 stable todaylisin opril has been stopped due to high K+ Type 2 sandee betes mellitus 15679550 E11.9 a1c is excellent at 6.1 was at 6.4 last time 6.6 and was 6.5 prior was 6.6 and was 6.4 and was 6.7 and is so he is actually doing good Weight stable sown a couple lbs ur microalb is neg discussed trying to eat a little better as he is but overall is doing ok Hypertriglyceridemia 302 984461 E78.1 stable LDL is 113 will repeat next will need to have this done in the spring he is currently on no meds per his request and is actually doing well explained in detail the issue with cholest and diabetes Advance care planning 71 5369973 Z71.89 up to date [id number] Mark Lira DO [facility] Internal Medicine [address] [facility] [place] [address] 09/13/2022 10:09:57 09/13/2022 11:30:38 Abdominal cutaneous nerve entrapment syndrome 245753693 G58.8 given positive carnetts sign he will need inject Type 2 sandee betes mellitus 84488243 E11.9 a1c is excellent at 6.6 6.1 was at 6.4 last time 6.6 and was 6.5 prior was 6.6 and was 6.4 and was 6.7 and is so he is actually doing good Weight stable sown a couple lbs ur microalb is neg discussed trying to eat a little better as he is but overall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
--- OUTSIDE RECORDS SUMMARY | 2025-02-09 09:08 | XMS_ITS ---
Author Organization [facility] Address [address] [place] [address] Care Team Providers Care Certified Professional Ergonomist Name Role Phone Santos CARMEN, Primary Care Provider Susy Maldonado Unavailable [phone] Encounters Encounter Location Date Provider Diagnosis [facility] [address] [place] [address] 09/17/2023 Susy Boateng Plan Of Treatment No Information Progress Notes * Ronnie LOPEZDOB: (69 yo M)Acc No.[id number]:09/17/2023 Progress Notes Patient:?Ronnie LOPEZ Provider:?Susy Boateng DPM :1955???Age:68 Y???Sex:Male Jose D e:09/17/2023 Address:[address] [place], [place] [id number] Pcp:Mark Grahma MD Subjective: * Chief Complaints: * ??? * Medical History:? Objective: * Vitals:? Assessment: Plan: * Treatment: * Images: * The named appointment provid er may or may not be the originator of this progress note, and it is not deemed complete until electronically signed by the appointment provider. Sign off status: Pending * Provider:?Susy Boateng DPM Date:? Generated for Patience reid/Víctor/eTransmitting on:?02/09/2025 09:08 AM EDT
--- OUTSIDE RECORDS SUMMARY | 2025-02-09 09:08 | XMS_ITS | Patient Health Record ---
Author Organization [facility] Address [address] [place] [address] Care Team Providers Care Cleaner Wall Name Role Phone Santos CARMEN, Primary Care Provider Susy Maldonado Unavailable [phone] Reason For Referral No Information Plan Of Treatment No Information Insurance Providers Payer Name Payer Address Payer Phone Subscriber Number Group Number Insured Name Patient Relationship to Insured Coverage Start Date Coverage End Date [employer] Preferred [address] [place] [address] [id number] Ronnie Lopez Self - patient is the insured
[2025-02-09 14:11] LABS: Estimated Average Glucose 123 mg/dL; Hemoglobin A1C 148.7852 umol/L; Hemoglobin A1c % 5.9 % (<6.0); Total Hemoglobin (HGBA1C) 3625.8383 umol/L
== END 2025-02-09 08:48 | disposition home or self-care (01) ==
LOC: HO.MANLDS 08:47
PROVIDERS: Visit Provider Internal Medicine
DX: E11.40 Type 2 diabetes mellitus with diabetic neuropathy, unspecified (principal)
CPT/HCPCS: 36415; 83036

== ENCOUNTER 2025-05-18 08:45 | Outpatient (REF) | payer MEDICARE, SELFPAY ==
--- OUTSIDE RECORDS SUMMARY | 2025-05-18 09:26 | XMS_ITS | Encounter Summary ---
Author Organization [facility] Address [address] [place] [address] Phone Care Team Providers Care Thumb Sewer Name Role Phone Mark Graham DO Primary Care Provider [phone] Encounter Details Date Type Department Care Team (Late st Contact Info) Description 08/12/2018 Ancillary Orders Virtual Department [address] [place] [address] Mark Graham DO [address] [facility] [place] [address] [email or web address] Degeneration of lumbar intervertebral disc Social History Tobacco Use Types Packs/Day Years Used Date Smoking Tobacco: Never Assessed Sex and Gender Information Value Date Recorded Sex Assigned at Not on file Legal Sex Male 5:17 PM EST Gender Identity Not on file Sexual Orientation Not on file documented as of this encounter Plan of Treatment Not on file documented as of this encounter Results * MRI LUMBAR SPINE (NEURO) WITHOUT CONTRAST (08/23/2018 11:44 AM EST) Anatomical Region Laterality Modality L-spine Magnetic Resonan ce 08/23/2018 2:30 PM EST Impressions 08/23/2018 2:47 PM EST 1. Slight increase in grade 1 spondylolisthesis at L4-5. 2. Slight increase in moderate midline focal disc protrusion at L3-4. 3. Slightly progressive moderate central and severe bilateral foraminal stenosis at L4-5 associated with broad, left-eccentric disc bulge but no focal protrusion. POS - [id number] Narrative 08/23/2018 2:47 PM EST TECHNIQUE: 1.5 Margret high-field MRI scanner. Sagittal T1, T2 and STIR, axial T1 and T2 sequences . Compare 02/07/2017 MRI. FINDINGS: 4-5 mm of anterolisthesis of L4 on L5, minimally increased since 2017. The other vertebral bodies are well-aligned. No worrisome marrow changes. Normal conus position and appearance. T11-L2: Minor broad disc bulge. No focal protrusion or stenosis L2-3: Stable moderate broad disc bulge extending laterally out into the exit foramina. This is eccentrically a little more prominent on the right exit foramen in the left. No focal disc protrusion is apparent but the peripheral nerve root is probably slightly displaced. No significant stenosis. L3-4: Slight increase in size of moderate midline focal disc protrusion which is slightly eccentric to the right and probably does displace both emerging nerve roots. Ridgelike endplate spurs produces mild bilateral foraminal stenosis but no high- grade stenosis is apparent. L4-5: The anterolisthesis of L4 uncovers the posterior disc margin which bulges up slightly behind L4 and is slightly more left-eccentric, but no focal protrusion has become apparent. There are also ridgelike endplate spurs which in combination with the anterolisthesis result and moderate central and severe bilateral foraminal stenosis, slightly progressed in 2017. L5-S1: Mild broad disc bulge. No focal protrusion. No significant stenosis. Procedure Note Sree Arellano MD - 08/23/2018 TECHNIQUE: 1.5 Margret high-field MRI scanner. Sagittal T1, T2 and STIR, axial T1 and T2 sequences . Compare 02/07/2017 MRI. FINDINGS: 4-5 mm of anterolisthesis of L4 on L5, minimally increased since 2017. The other vertebral bodies are well-aligned. No worrisome marrow changes. Normal conus position and appearance. T11-L2: Minor broad disc bulge. No focal protrusion or stenosis L2-3: Stable moderate broad disc bulge extending laterally out into theexit foramina. This is eccentrically a little more prominent on the rightexit foramen in the left. No focal disc protrusion is apparent but theperipheral nerve root is probably slightly displaced. No significantstenosis. L3-4: Slight increase in size of moderate midline focal disc protrusionwhich is slightly eccentric to the right and probably does displace bothemerging nerve roots. Ridgelike endplate spurs produces mild bilateralforaminal stenosis but no high- grade stenosis is apparent. L4-5: The anterolisthesis of L4 uncovers the posterior disc margin whichbulges up slightly behind L4 and is slightly more left-eccentric, but nofocal protrusion has become apparent. There are also ridgelike endplatespurs which in combination with the anterolisthesis result and moderatecentral and severe bilateral foraminal stenosis, slightly progressed [id number]. L5-S1: Mild broad disc bulge. No focal protrusion. No significantstenosis. IMPRESSION: 1. Slight increase in grade 1 spondylolisthesis at L4-5. 2. Slight increase in moderate midline focal disc protrusion at L3-4. 3. Slightly progressive moderate central and severe bilateral foraminalstenosis at L4-5 associated with broad, left-eccentric disc bulge but nofocal protrusion. POS - [id number] Mark Graham DO IM MR XSPECIALTY Final Result documented in this encounter Visit Diagnoses Diagnosis Degeneration of lumbar intervertebral disc Degeneration of lumbar or lumbosacral intervertebral disc Degeneration of lumbar intervertebral disc Degeneration of lumbar or lumbosacral intervertebral disc documented in this encounter Care Teams Thumb Sewer Relationship Specialty Start Date End Date Mark Graham DO [email or web address] PCP - General Internal Medicine 08/12/18 documented as of this encounter Additional Source Comments The information contained in this document represents components of the legal health record. It is not the complete legal health record.[facility]
[2025-05-18 17:48] LABS: Hemoglobin A1C 212.3604 umol/L; Total Hemoglobin (HGBA1C) 3604.1403 umol/L
[2025-05-18 18:09] LABS: Alanine Aminotransferase 26 U/L (0-40); Albumin Level 4.7 g/dL (3.5-5.0); Alkaline Phosphatase 52 U/L (39-117); Anion Gap 15 (12-20); Aspartate Amino Transferase 38 U/L (5-37); Blood Urea Nitrogen 22 mg/dL (9-16); Calcium 9.2 mg/dL (8.4-10.2); Carbon Dioxide 26 mmol/L (22-29); Chloride 103 mmol/L (96-108); Cholesterol 153 mg/dL (<200); Estimated Glomerular Filt Rate > 60; HDL Cholesterol 34 mg/dL (>40); Potassium 4.9 mmol/L (3.3-5.1); Sodium 139 mmol/L (135-145); Total Protein 7.5 g/dL (6.5-8.0); Triglycerides 128 mg/dL (<150)
== END 2025-05-18 08:46 | disposition home or self-care (01) ==
LOC: HO.MANLDS 08:45
PROVIDERS: Visit Provider Internal Medicine
DX: Z00.00 Encounter for general adult medical examination without abnormal findings (principal); Z13.6 Encounter for screening for cardiovascular disorders; Z13.1 Encounter for screening for diabetes mellitus
CPT/HCPCS: 36415; 80053; 80061; 83036

== ENCOUNTER 2025-09-05 08:37 | Outpatient (REF) | payer MEDICARE, SELFPAY | END 2025-09-05 08:38 | disposition home or self-care (01) | LOC: HO.MANLDS 08:37 | PROVIDERS: Visit Provider Internal Medicine | DX: E11.40 Type 2 diabetes mellitus with diabetic neuropathy, unspecified (principal) | CPT/HCPCS: 36415; 83036 ==